=== PATIENT | female | born 1955 | race Caucasian/White ===

== ENCOUNTER → 2016-12-03 | Outpatient (CLI) | payer BC ==
[~2016-12-03] MED LIST: ALLEGRA60 MG PO; ATORVASTATIN CA20 MG PO; CIPRO PO; FISH OIL 1,2001 EACH PO; FLOMAX0.4 M1 PO; HYDROCHLOROTHIA25 MG PO; PHENERGAN PO; SERTRALINE HCL100 MG PO; SYNTHROID PO; TYLENOL #3 PO; VOLTAREN50 MG PO
[2016-12-03 15:27] LABS: FOLATE (FOLIC ACID) 22.2 ng/mL (>5.8)
[2016-12-05 16:31] LABS: ANA SCREEN Negative (Negative); DHEA SULFATE 28 mcg/dL (12-133); TESTOSTERONE FREE (PNL) 2.1 pg/mL (0.1-6.4); TESTOSTERONE TOTAL(PNL) 20 ng/dL (2-45)
== END | disposition home or self-care (01) ==
LOC: CLAB 13:16
PROVIDERS: Specialist
DX: L65.9 Nonscarring hair loss, unspecified (principal)
CPT/HCPCS: 36415; 82306; 82607; 82626; 82652; 82728; 82746; 84402; 84403; 84630; 86038; 86039